=== PATIENT | male | born 1985 | race Caucasian/White ===

== ENCOUNTER → 2017-05-02 | Day surgery (SDC) | payer OTHER ==
[2017-05-02 14:05] LABS: HCT 40.2 % (42.0-52.0); MCH 26.2 pg (25.0-31.0); MCHC 34.8 g/dL (32.0-36.0); MCV 75.1 fL (78.0-100.0); MPV 10.6 fL (6.0-9.5); RBC 5.35 M/uL (4.70-6.00); RDW 13.5 % (11.5-14.0); WBC 8.8 K/uL (4.0-10.5)
[2017-05-02 14:25] LABS: CREATININE 0.7 mg/dL (0.7-1.2); POTASSIUM 4.2 mmol/L (3.5-5.1)
== END | disposition home or self-care (01) ==
LOC: FAS 13:48
PROVIDERS: Surgery
DX: L05.01 Pilonidal cyst with abscess (principal); E11.9 Type 2 diabetes mellitus without complications; Z79.84 Long term (current) use of oral hypoglycemic drugs; I10 Essential (primary) hypertension; J45.909 Unspecified asthma, uncomplicated; F17.210 Nicotine dependence, cigarettes, uncomplicated; E66.9 Obesity, unspecified; Z68.36 Body mass index [BMI] 36.0-36.9, adult; G47.33 Obstructive sleep apnea (adult) (pediatric); F32.9 Major depressive disorder, single episode, unspecified; F41.9 Anxiety disorder, unspecified; Z88.3 Allergy status to other anti-infective agents
CPT/HCPCS: 36415; 80048; 87070; 87075; 87205; J0690; J1170; J2405; J2704; J3010